=== PATIENT | female | born 1965 | race Hispanic/Latino ===

== ENCOUNTER 2018-05-07 09:35 | Outpatient (CLI) | payer BC | END 2018-05-07 09:36 | disposition home or self-care (01) | LOC: BICMAMMO 09:35 | PROVIDERS: ATTEND Family Medicine | DX: N63.10 Unspecified lump in the right breast, unspecified quadrant (principal); R92.8 Other abnormal and inconclusive findings on diagnostic imaging of breast | CPT/HCPCS: 77066; G0279 ==

== ENCOUNTER 2019-05-08 07:43 | Outpatient (CLI) | payer BC ==
--- NOTE | 2019-05-08 08:51 | MMO ---
Bilateral MAMMO Bilat Screen [facility]+JOSE ALEJANDRO. CLINICAL HISTORY: Patient is 53 years old and is seen for screening. The patient has no family history of breast cancer. The patient has no personal history of cancer. VIEWS: The views performed were: bilateral craniocaudal with tomosynthesis and bilateral mediolateral oblique with tomosynthesis. FILMS COMPARED: The present examination has been compared to prior imaging studies performed at [facility] on 12/19/2014, 12/26/2014, 02/29/2016 and 05/07/2018. MAMMOGRAM FINDINGS: The breasts are heterogeneously dense, which could obscure a lesion on mammography. There is a new focal asymmetry measuring 6 x 11 mm with obscured margins seen in the CC view only seen in the central region of the right breast. In the left breast, there are no suspicious masses, calcifications or areas of architectural distortion. IMPRESSION: NEW FOCAL ASYMMETRY IN THE RIGHT BREAST REQUIRES ADDITIONAL EVALUATION. ADDITIONAL PROJECTIONS (RIGHT CRANIOCAUDAL SPOT COMPRESSION; RIGHT MEDIOLATERAL OBLIQUE SPOT COMPRESSION; AND RIGHT MEDIOLATERAL) ARE RECOMMENDED. AN ULTRASOUND EXAM IS RECOMMENDED IF NEEDED. ADDITIONAL IMAGING. THE RESULTS OF THIS EXAM WERE SENT TO THE PATIENT. ACR BI-RADS Category 0 - Incomplete: Need additional imaging evaluation. [facility] will notify the patient of the need for additional imaging services. MAMMOGRAPHY NOTE: 1. A negative mammogram report should not delay a biopsy if a dominant of clinically suspicious mass is present. 2. Approximately 10% to 15% of breast cancers are not detected by mammography. 3. Adenosis and dense breasts may obscure an underlying neoplasm.
== END 2019-05-08 07:44 | disposition home or self-care (01) ==
LOC: BICMAMMO 07:43
PROVIDERS: ATTEND Obstetrics & Gynecology
DX: Z12.31 Encounter for screening mammogram for malignant neoplasm of breast (principal); N64.89 Other specified disorders of breast
CPT/HCPCS: 77063; 77067

== ENCOUNTER 2019-05-14 14:54 | Outpatient (CLI) | payer BC ==
--- NOTE | 2019-05-14 15:37 | ULT ---
LIMITED RIGHT BREAST ULTRASOUND: 05/14/19 PROVIDED CLINICAL HISTORY: Abnormal mammogram. FINDINGS: Limited sonographic interrogation of the right breast was performed in the region of mammographic con cern. A circumscribed hypoechoic structure measuring about 7 mm is demonstrated with smooth margins a nd no posterior shadowing. This is incompletely anechoic centrally. IMPRESSION: BIRADS 3: Probably Benign Finding Initial Short-Interval Follow-Up Suggested Initial short-term follow up mammogram and ultrasound(usually 6-month) are recommended. POS: OFF
--- NOTE | 2019-05-14 15:50 | MMO ---
Right Breast MAMMO Unilat Diag DDI RT+JOSE ALEJANDRO. CLINICAL HISTORY: Patient is 53 years old and is seen for diagnostic exam. The patient has no family history of breast cancer. The patient has no personal history of cancer. VIEWS: The views performed were: right craniocaudal with tomosynthesis and right mediolateral with tomosynthesis. FILMS COMPARED: The present examination has been compared to prior imaging studies performed at [facility] on 02/29/2016, 05/07/2018, 05/08/2019 and 05/14/2019. MAMMOGRAM FINDINGS: The breast is heterogeneously dense, which could obscure a lesion on mammography. There is an equal density, oval mass measuring 12 millimeters with circumscribed margins seen in the posterior region of the right breast at 6 o'clock. Sonography of this region demonstrates a complex cyst that may or may not correlate with the mammographic finding. IMPRESSION: MASS IN THE RIGHT BREAST IS PROBABLY BENIGN. FOLLOW-UP IN 6 MONTHS IS RECOMMENDED. THE RESULTS OF THIS EXAM WERE SENT TO THE PATIENT. ACR BI-RADS Category 3 - Probably benign finding - short interval follow-up suggested. [facility] will notify the patient of the need for additional imaging services. MAMMOGRAPHY NOTE: 1. A negative mammogram report should not delay a biopsy if a dominant of clinically suspicious mass is present. 2. Approximately 10% to 15% of breast cancers are not detected by mammography. 3. Adenosis and dense breasts may obscure an underlying neoplasm.
== END 2019-05-14 14:55 | disposition home or self-care (01) ==
LOC: BICMAMMO 14:54
PROVIDERS: ATTEND Obstetrics & Gynecology
DX: R92.8 Other abnormal and inconclusive findings on diagnostic imaging of breast (principal); N63.11 Unspecified lump in the right breast, upper outer quadrant
CPT/HCPCS: G0279

== ENCOUNTER 2019-12-05 08:14 | Outpatient (CLI) | payer BC ==
--- NOTE | 2019-12-05 09:06 | MMO ---
Right Breast MAMMO Unilat Diag [facility]DI RT+JOSE ALEJANDRO. CLINICAL HISTORY: Patient is 54 years old and is seen for diagnostic exam. The patient has no family history of breast cancer. The patient has no personal history of cancer. VIEWS: The views performed were: right craniocaudal with tomosynthesis; right mediolateral oblique with tomosynthesis; right mediolateral with tomosynthesis; and right exaggerated craniocaudal. FILMS COMPARED: The present examination has been compared to prior imaging studies performed at [facility] on 05/08/2019, 05/14/2019 and 12/05/2019. This study has been interpreted with the assistance of computer-aided detection. MAMMOGRAM FINDINGS: The breast is heterogeneously dense, which could obscure a lesion on mammography. There is a stable oval mass with circumscribed margins seen in the right breast at 6 o'clock. IMPRESSION: STABLE MASS IN THE RIGHT BREAST IS PROBABLY BENIGN. FOLLOW-UP IN 6 MONTHS IS RECOMMENDED. THE RESULTS OF THIS EXAM WERE SENT TO THE PATIENT. ACR BI-RADS Category 3 - Probably benign finding - short interval follow-up suggested. [facility] will notify the patient of the need for additional imaging services. MAMMOGRAPHY NOTE: 1. A negative mammogram report should not delay a biopsy if a dominant of clinically suspicious mass is present. 2. Approximately 10% to 15% of breast cancers are not detected by mammography. 3. Adenosis and dense breasts may obscure an underlying neoplasm. Reported by: DEBRA HUDSON MD Electonically Signed: [id number]
--- NOTE | 2019-12-05 10:23 | ULT ---
RIGHT BREAST ULTRASOUND: HISTORY: Right breast mass. FINDINGS: The patient returns for six month follow-up evaluation of the right breast. In the 6 o'clock position , 4 cm from the nipple, there is again noted to be a circumscribed hypoechoic mass, measuring 0.4 x 0 .6 x 0.8 cm in size with some internal echoes or debris. Appearance is stable from prior study. IMPRESSION: BI-RADS category 3 - probably benign findings. Six month follow-up evaluation is recommended. POS: OFF
== END 2019-12-05 08:15 | disposition home or self-care (01) ==
LOC: BICMAMMO 08:14
PROVIDERS: ATTEND Obstetrics & Gynecology
DX: R92.8 Other abnormal and inconclusive findings on diagnostic imaging of breast (principal); N63.10 Unspecified lump in the right breast, unspecified quadrant
CPT/HCPCS: G0279

== ENCOUNTER 2020-06-01 14:30 | Outpatient (CLI) | payer BC ==
--- NOTE | 2020-06-01 15:19 | ULT ---
EXAM: US Breast Limited Rt PROVIDED CLINICAL HISTORY: Follow up right breast mass COMPARISON: 12/05/2019, 05/14/2019 FINDINGS: Limited sonographic interrogation of the right breast was performed in the region of prior sonographi c concern. There is a circumscribed hypoechoic mass again seen at the 6:00 position, demonstrating smooth circumscribed margins and no posterior shadowing. This appears not significantly changed with respect to prior examinations. IMPRESSION: Stable probable complex cyst. One-year follow-up recommended. BI-RADS 3 -- probably benign, 6-month follow-up
--- NOTE | 2020-06-01 15:19 | MMO ---
Bilateral MAMMO Bilat Diag [facility]DI[facility]SE ALEJANDRO. CLINICAL HISTORY: Patient is 54 years old and is seen for diagnostic exam. The patient has no family history of breast cancer. The patient has no personal history of cancer. VIEWS: The views performed were: bilateral craniocaudal with tomosynthesis; bilateral mediolateral oblique with tomosynthesis; and bilateral mediolateral with tomosynthesis. FILMS COMPARED: The present examination has been compared to prior imaging studies performed at [facility] on 05/14/2019, 12/05/2019 and 06/01/2020. This study has been interpreted with the assistance of computer-aided detection. MAMMOGRAM FINDINGS: The breasts are heterogeneously dense, which could obscure a lesion on mammography. There is a stable oval mass with circumscribed margins seen in the right breast at 6 o'clock. In the left breast, there are no suspicious masses, calcifications or areas of architectural distortion. IMPRESSION: STABLE MASS IN THE RIGHT BREAST IS PROBABLY BENIGN. FOLLOW-UP IN 1 YEAR IS RECOMMENDED. THE RESULTS OF THIS EXAM WERE SENT TO THE PATIENT. ACR BI-RADS Category 3 - Probably benign finding - short interval follow-up suggested. [facility] will notify the patient of the need for additional imaging services. MAMMOGRAPHY NOTE: 1. A negative mammogram report should not delay a biopsy if a dominant of clinically suspicious mass is present. 2. Approximately 10% to 15% of breast cancers are not detected by mammography. 3. Adenosis and dense breasts may obscure an underlying neoplasm. Reported by: BRANDO HOWELL MD Electonically Signed: [id number]
== END 2020-06-01 14:31 | disposition home or self-care (01) ==
LOC: BICMAMMO 14:30
PROVIDERS: ATTEND Obstetrics & Gynecology
DX: R92.8 Other abnormal and inconclusive findings on diagnostic imaging of breast (principal); N63.20 Unspecified lump in the left breast, unspecified quadrant
CPT/HCPCS: 77066; G0279

== ENCOUNTER 2021-07-02 14:52 | Outpatient (CLI) | payer BC | END 2021-07-02 14:53 | disposition home or self-care (01) | LOC: BICMAMMO 14:52 | PROVIDERS: ATTEND Obstetrics & Gynecology | DX: R92.8 Other abnormal and inconclusive findings on diagnostic imaging of breast (principal) | CPT/HCPCS: 77066; G0279 ==

== ENCOUNTER 2022-07-04 07:53 | Outpatient (CLI) | payer OTHER | END 2022-07-04 07:54 | disposition home or self-care (01) | LOC: BICMAMMO 07:53 | PROVIDERS: ATTEND Obstetrics & Gynecology | DX: Z12.31 Encounter for screening mammogram for malignant neoplasm of breast (principal) | CPT/HCPCS: 77063; 77067 ==

== ENCOUNTER 2023-07-07 13:34 | Outpatient (CLI) | payer BC | END 2023-07-07 13:35 | disposition home or self-care (01) | LOC: BICMAMMO 13:34 | PROVIDERS: ATTEND Obstetrics & Gynecology | DX: Z12.31 Encounter for screening mammogram for malignant neoplasm of breast (principal) | CPT/HCPCS: 77063; 77067 ==

== ENCOUNTER 2025-07-18 13:51 | Outpatient (CLI) | payer BC | END 2025-07-18 13:52 | disposition home or self-care (01) | LOC: BICMAMMO 13:51 | PROVIDERS: ATTEND Obstetrics & Gynecology | DX: Z12.31 Encounter for screening mammogram for malignant neoplasm of breast (principal); Z85.828 Personal history of other malignant neoplasm of skin | CPT/HCPCS: 77063; 77067 ==